=== PATIENT | female | born 1975 | race Caucasian/White ===

== ENCOUNTER 2022-02-16 17:20 | Emergency (ER) | payer OTHER ==
[2022-02-16 19:17] LABS: Urine Blood Negative (Negative); Urine Glucose Negative (Negative); Urine Protein Negative (Negative)
[2022-02-16 19:27] LABS: Potassium 4.2 mmol/L (3.5-5.1)
[2022-02-16 19:49] LABS: Urine Bacteria <20 /HPF (<20); Urine RBC <5 /HPF (None Seen)
[2022-02-16] MEDS ORDERED: NA CHLORIDE 0.9% 500 ML ONE (20:10)
[2022-02-16 20:20] LABS: Absolute Lymphocytes (CBC) 2.4 K/uL (0.7-4.9); Hematocrit 40.2 % (36.0-45.0); Lymphocytes % 21.8 % (15.3-44.8); MCV 86.6 fL (80-100); MPV 9.4 fL (7.6-11.3); RBC Red Blood Cell Count 4.64 M/uL (3.86-4.86)
--- NOTE | 2022-02-16 20:38 | RAD REPORT ---
EXAM DESCRIPTION: RAD - Chest Single View - 02/16/2022 8:03 pm CLINICAL HISTORY: CHEST PAIN COMPARISON: None TECHNIQUE: AP portable chest image was obtained 02/16/2022 8:03 pm . FINDINGS: Lungs are clear. Heart and vasculature are normal. No measurable pleural effusion and no p neumothorax. No acute bony abnormality seen. No acute aortic findings suspected. IMPRESSION: No acute cardiopulmonary process.
--- NOTE | 2022-02-16 20:56 | ER ---
Nurse's Notes [facility] Name: Karon Stinson Age: 46 yrs Sex: Female : 1975 Arrival Date: 02/16/2022 Time: 17:21 Bed 11 Private MD: Tre Pacheco R Diagnosis: Headache;Cough;Acute upper respiratory infection, unspecified Presentation: 02/16 18:28 Chief complaint: Patient states: my throat was hurting, has cough and chest iw tightness , I have MS and RA and I have body aches, and nausea , COVID and flu was negative on Sunday. Coronavirus screen: Client presents with at least one sign or symptom that may indicate coronavirus-19. Ebola Screen: Patient negative for fever greater than or equal to 101.5 degrees Fahrenheit, and additional compatible Ebola Virus Disease symptoms Patient denies exposure to infectious person. Patient denies travel to an Ebola-affected area in the 21 days before illness onset. No symptoms or risks identified at this time. Initial Sepsis Screen: Does the patient meet any 2 criteria? No. Patient's initial sepsis screen is negative. Does the patient have a suspected source of infection? No. Patient's initial sepsis screen is negative. Risk Assessment: Do you want to hurt yourself or someone else? Patient reports no desire to harm self or others. Onset of symptoms was February 12, 2022. 18:28 Method Of Arrival: Ambulatory iw 18:28 Acuity: ASIA 3 iw Triage Assessment: 19:30 General: Appears in no apparent distress. Behavior is calm, cooperative, appropriate vc1 for age. Pain: Complains of pain in chest. 19:30 Cardiovascular: Reports chest pain, Patient's skin is warm and dry. Chest pain is vc1 described as mild. Historical: - Allergies: 18:29 NKDA; iw - Home Meds: 18:29 Aubagio 14 mg Oral tab 1 tab once daily [Active]; baclofen 20 mg Oral tab 1 tab twice a iw day [Active]; naltrexone-bupropion 4.5 MG Oral 1 tab nightly [Active]; pregabalin 150 mg Oral cap 1 cap 3 times per day [Active]; Plaquenil 200 mg Oral tab 1 tab 2 times per day [Active]; - Family history:: not pertinent. - Hospitalizations: : No recent hospitalization is reported. Screenin:04 Abuse screen: Denies threats or abuse. Nutritional screening: No deficits noted. vc1 Tuberculosis screening: No symptoms or risk factors identified. Fall Risk None identified. Vital Signs: 18:28 BP 118 / 74; Pulse 67; Resp 16; Temp 98.4; Pulse Ox 99% on R/A; iw ED Course: 17:21 Patient arrived in ED. am2 17:22 Tre Pacheco MD is Private Physician. am2 18:29 Triage completed. iw 18:30 Arm band placed on. iw 18:57 Jatin Case MD is Attending Physician. rn 20:05 CXR XRAY In Process Unspecified. EDMS 22:05 No provider procedures requiring assistance completed. IV discontinued, intact, vc1 bleeding controlled, No redness/swelling at site. Pressure dressing applied. Patient maintains SpO2 saturation greater than 95% on room air. Administered Medications: 20:12 Drug: NS 0.9% 500 ml Route: IV; Rate: bolus; Site: right antecubital; vc1 Outcome: 20:55 Discharge ordered by . rn 22:05 Discharged to home ambulatory. vc1 22:05 Condition: good 22:05 Discharge instructions given to patient, Instructed on discharge instructions, follow up and referral plans. Demonstrated understanding of instructions, follow-up care. 22:06 Patient left the ED. vc1 Signatures: Dispatcher [employer] Madalyn Yan RN RN Jatin Case MD MD rn Moreno, Amanda am Cielo Kebede RN RN vc1
--- NOTE | 2022-02-16 20:56 | EDPHYS ---
Physician Documentation [facility] Name: Karon Stinson Age: 46 yrs Sex: Female : 1975 Arrival Date: 02/16/2022 Time: 17:21 Bed 11 Private MD: Tre Pacheco R ED Physician Jatin Case HPI: 02/16 19:35 This 46 yrs old Female presents to ER via Ambulatory with complaints of Chest rn Tightness, Headache, Sore Throat, General Weakness. 19:36 The patient or guardian reports cough, flu symptoms, low-grade fever, myalgias, no rn appetite. Onset: The symptoms/episode began/occurred 2 day(s) ago. Severity of symptoms: At their worst the symptoms were moderate, in the emergency department the symptoms are unchanged. Modifying factors: The symptoms are alleviated by nothing, the symptoms are aggravated by nothing. Associated signs and symptoms: Pertinent positives: diarrhea, nausea, rhinorrhea, sore throat. The patient has not experienced similar symptoms in the past. The patient has been recently seen by a physician:. Pt reports symptoms of headache/nausea/cough/sore throat/myalgias/generalized weakness present for 2 days, seen at urgent care 2 hours after began and was tested neg for COVID and flu. Went back today and told to come here for further evaluation. Reports intermittent chest tightness that last a couple of minutes, feels heavy, goes away on its own. No hemoptysis. No hx of dvt/PE. . Historical: - Allergies: 18:29 NKDA; iw - Home Meds: 18:29 Aubagio 14 mg Oral tab 1 tab once daily [Active]; baclofen 20 mg Oral tab 1 tab twice a iw day [Active]; naltrexone-bupropion 4.5 MG Oral 1 tab nightly [Active]; pregabalin 150 mg Oral cap 1 cap 3 times per day [Active]; Plaquenil 200 mg Oral tab 1 tab 2 times per day [Active]; - Family history:: not pertinent. - Hospitalizations: : No recent hospitalization is reported. ROS: 19:36 Constitutional: Negative for fever, and weight loss, Eyes: Negative for injury, pain, rn redness, and discharge, Cardiovascular: Negative for palpitations, and edema, Respiratory: Negative for shortness of breath, wheezing, and pleuritic chest pain, Abdomen/GI: Negative for abdominal pain, vomiting, and constipation, Back: Negative for injury and pain, : + increased urinary frequency MS/Extremity: Negative for injury and deformity, Skin: Negative for injury, rash, and discoloration, Neuro: Negative for numbness, tingling, and seizure. Exam: 19:36 Constitutional: This is a well developed, well nourished patient who is awake, alert, rn and in no acute distress. Head/Face: Normocephalic, atraumatic. Eyes: Periorbital areas with no swelling, redness, or edema. ENT: dry MM, no stridor, no swelling Neck: Trachea midline, no masses palpated, and no cervical lymphadenopathy. Supple, full range of motion without nuchal rigidity, or vertebral point tenderness. No Meningismus. Cardiovascular: Regular rate and rhythm. No pulse deficits. Respiratory: Speaking full sentences, unlabored. No increased work of breathing, no retractions or nasal flaring. Abdomen/GI: soft, non-tender, no guarding or peritoneal signs, non-distended Skin: Warm, dry MS/ Extremity: Pulses equal, no cyanosis. Neuro: Awake and alert, GCS 15, oriented. Motor strength 5/5 in all extremities. Sensory grossly intact. Cerebellar exam normal. 20:16 ECG was reviewed by the Attending Physician. rn Vital Signs: 18:28 BP 118 / 74; Pulse 67; Resp 16; Temp 98.4; Pulse Ox 99% on R/A; iw MDM: 18:57 Patient medically screened. rn 20:54 Differential Diagnosis: Bronchitis Influenza Upper Respiratory Infection Sinusitis rn Viral Syndrome Pneumonia. Data reviewed: vital signs, nurses notes, lab test result(s), EKG, radiologic studies, plain films, and as a result, I will discharge patient. Counseling: I had a detailed discussion with the patient and/or guardian regarding: the historical points, exam findings, and any diagnostic results supporting the discharge/admit diagnosis, lab results, radiology results, the need for outpatient follow up, to return to the emergency department if symptoms worsen or persist or if there are any questions or concerns that arise at home. Special discussion: I discussed with the patient/guardian in detail that at this point there is no indication for admission to the hospital. It is understood, however, that if the symptoms persist or worsen the patient needs to return immediately for re-evaluation. ED course: Normal CXR, normal vitals, COVID/FLu/Strep neg, UA neg. No oxygen requirement. Will dc home with return precautions and pcp f/u as needed. . 02/16 18:30 Order name: SARS-COV-2 RT PCR (Document "Date of Onset" if Symptomatic); Complete Time: [facility] 20:17 02/16 18:30 Order name: Strep; Complete Time: 19:[address] [facility] 02/16 18:30 Order name: Flu; Complete Time: 19:[address] [facility] 02/16 18:31 Order name: CBC with Diff; Complete Time: 20:[address] [facility] 02/16 18:31 Order name: Basic Metabolic Panel; Complete Time: 20:[address] [facility] 02/16 19:06 Order name: Urine Microscopic Only; Complete Time: 20:17 02/16 18:31 Order name: CXR XRAY; Complete Time: 20:[address] [facility] 02/16 19:06 Order name: Urine Dipstick-Ancillary (obtain specimen); Complete Time: 19:10 02/16 19:11 Order name: Throat Culture [facility] 02/16 19:18 Order name: Urine Dipstick-Ancillary; Complete Time: 19:25 [facility] 02/16 19:26 Order name: Troponin High Sensitivity; Complete Time: 20:45 02/16 19:27 Order name: Urine --Ancillary (enter results); Complete Time: 20:17 [facility] 02/16 19:29 Order name: EKG; Complete Time: 19:31 02/16 19:14 Order name: Labs - recollect needed: lavender needed; Complete Time: 20:01 [facility] 02/16 19:29 Order name: EKG - Nurse/Tech; Complete Time: 20:05 rn EC:16 Rate is 56 beats/min. Rhythm is regular. QRS [place] is Normal. CT interval is normal. QRS rn interval is normal. QT interval is normal. No Q waves. T waves are Normal. No ST changes noted. Clinical impression: Sinus bradycardia. Interpreted by me. Reviewed by me. Administered Medications: 20:12 Drug: NS 0.9% 500 ml Route: IV; Rate: bolus; Site: right antecubital; vc1 Disposition Summary: 02/16/22 20:55 Discharge Ordered Location: Home rn Problem: new rn Symptoms: have improved rn Condition: Stable rn Diagnosis - Headache rn - Cough rn - Acute upper respiratory infection, unspecified rn Followup: rn - With: Private Physician - When: As needed - Reason: Recheck today's complaints, Re-evaluation by your physician Discharge Instructions: - Discharge Summary Sheet rn - General Headache Without Cause rn - Upper Respiratory Infection, Adult rn - Cough, Adult rn Forms: - Medication Reconciliation Form rn - Thank You Letter rn - Antibiotic seed corn production manager - Prescription Opioid Use rn Signatures: Dispatcher [employer] Madalyn Yan, RN RN Jatin uMir MD MD rn Martinez, Dc em1 Cielo Kebede RN RN vc1
[2022-02-17 02:29] VITALS: BP 118/74; TEMP 98.4; O2SAT 99
--- NOTE | 2022-02-17 15:20 | EKG ---
Test Date: 2022-02-16 Test Time: 19:44:47 Rehabilitation Services Director: FRANCISCO MEASUREMENT RESULTS: Intervals: Rate: 56 CA: 144 QRSD: 96 QT: 448 QTc: 432 [place]: P: 44 CA: 144 QRS: 28 T: 42 INTERPRETIVE STATEMENTS: Sinus bradycardia Cannot rule out Inferior infarct, age undetermined Abnormal ECG Compared to ECG 02/09/2022 17:47:09 Sinus rhythm no longer present Myocardial infarct finding still present Electronically Signed On 02-17-22 15:18:53 CDT by Rene Boswell
== END 2022-02-16 22:06 | disposition home or self-care (01) ==
LOC: ER 17:20
DX: J06.9 Acute upper respiratory infection, unspecified (principal); R51.9 Headache, unspecified; Z20.822 Contact with and (suspected) exposure to COVID-19
CPT/HCPCS: 93005; 87070; 85025; 80048; 36415; 81025; 87081; 84484; 87804 ×2; 71045; 99284; U0003; J7040; 81003; 81015